=== PATIENT | female | born 1990 | race Two or more races ===

== ENCOUNTER 2021-03-26 15:31 | Emergency (ER) | payer OTHER ==
[~2021-03-26] VITALS: Ht 162.6 cm; Wt 72.6 kg
== END 2021-03-26 17:46 | disposition home or self-care (01) ==
LOC: ER 15:31
DX: J11.1 Influenza due to unidentified influenza virus with other respiratory manifestations (principal); Z20.822 Contact with and (suspected) exposure to COVID-19